=== PATIENT | female | born 1985 | race Caucasian/White ===

== ENCOUNTER 2018-04-12 18:55 | Emergency (ER) | payer MEDICAID ==
[~2018-04-12] VITALS: Ht 165.1 cm; Wt 75.0 kg
[~2018-04-12 18:55] MED LIST: PREN-169 BC
[2018-04-12] MEDS: IBUPROFEN 800 MG TABLET PO ONE ×2 (20:09→20:27)
[2018-04-12 20:55] VITALS: BP 120/79
== END 2018-04-12 21:04 | disposition home or self-care (01) ==
LOC: EMS 18:56
DX: S93.402A Sprain of unspecified ligament of left ankle, initial encounter (principal); D64.9 Anemia, unspecified; E11.9 Type 2 diabetes mellitus without complications; Z88.8 Allergy status to other drugs, medicaments and biological substances; F17.210 Nicotine dependence, cigarettes, uncomplicated; X50.1XXA Overexertion from prolonged static or awkward postures, initial encounter; Y93.01 Activity, walking, marching and hiking; Y92.89 Other specified places as the place of occurrence of the external cause; Y99.8 Other external cause status
CPT/HCPCS: 29540; 99284